=== PATIENT | female | born 1990 | race Caucasian/White ===

== ENCOUNTER 2016-10-07 20:50 | Emergency (ER) | END 2016-10-08 01:10 | disposition home or self-care (01) | DX: M54.5 Low back pain (principal) | CPT/HCPCS: 96372; 99284; J1885; Z7610 ==

== ENCOUNTER 2017-08-24 20:50 | Emergency (ER) | END 2017-08-24 22:53 | disposition home or self-care (01) ==

== ENCOUNTER 2018-01-25 08:11 | Emergency (ER) | END 2018-01-25 13:59 | disposition home or self-care (01) ==

== ENCOUNTER 2018-09-16 20:20 | Emergency (ER) | payer BC ==
[~2018-09-16] VITALS: Ht 157.5 cm; Wt 65.8 kg
[~2018-09-16 20:20] MED LIST: ACET500C5 PO; BACTDS PO; CIPR500T4 PO; CYCL10TA7 PO; HYDR-3029 PO; IBUP800T48 PO; NAPR-985 PO
[2018-09-16 20:37] VITALS: BP 122/67; PULSE 90; RESP 18; Ht 157.5 cm; Wt 65.8 kg
[2018-09-16] MEDS ORDERED: ACETAMINOPHEN 325 MG TAB PO STA (21:51)
--- NOTE | 2018-09-17 08:24 | ERD ---
ER Documentation Chief Complaint Chief Complaint pELVIC PAIN X 5 DAYS BILATERAL LEG PAIN 4 WEEKS PREG HPI 28-year-old G2, P1 female at approximately 4 weeks gestation presents to the ED complaining of bilateral pelvic pain x5 days. Patient denies any vaginal bleeding or discharge. She denies any urinary frequency urgency. Denies any back pain. Denies any fevers or chills. Her last menstrual cycle was on August 17, 2018. Patient has not yet established care with an CERTIFIED MASTER SAFE TECHNICIAN for her . She states she had a positive test at the clinic earlier today. ROS All systems reviewed and are negative except as per history of present illness. Medications Home Meds Active Scripts Acetaminophen* (Tylophen*) 500 Mg Capsule, 1 CAP PO Q6H PRN for PAIN AND OR ELEVATED TEMP, #20 CAP Prov:ASHER RODRIGUEZ NP 01/25/18 Ciprofloxacin Hcl* (Ciprofloxacin Hcl*) 500 Mg Tablet, 500 MG PO BID for 10 Days, TAB Prov:ASHER RODRIGUEZ NP 01/25/18 Hydroxyzine Hcl* (Hydroxyzine Hcl*) 10 Mg Tablet, 10 MG PO Q6H PRN for ANXIETY, #30 TAB Prov:HERSON BATISTA PA-C 08/24/17 Naproxen* (Naprosyn*) 500 Mg Tablet, 500 MG PO BID PRN for PAIN AND/OR INFLAMMATION, #30 TAB Prov:HERSON BATISTA PA-C 08/24/17 Cyclobenzaprine Hcl* (Cyclobenzaprine Hcl*) 10 Mg Tablet, 10 MG PO TID, #30 TAB Prov:JEANETTE LOMBARDI PA-C 10/08/16 Naproxen* (Naprosyn*) 500 Mg Tablet, 500 MG PO BID PRN for PAIN AND/OR INFLAMMATION, #30 TAB Prov:JEANETTE LOMBARDI PA-C 10/08/16 Sulfamethoxazole-Trimethoprim* (Bactrim* DS) 800-160 Mg Tab, 1 TAB PO BID for 14 Days, TAB Prov:PANCHO MAYFIELD DO 06/30/15 Ibuprofen* (Motrin*) 800 Mg Tab, 800 MG PO Q6H PRN for PAIN AND OR ELEVATED TEMP, #30 TAB Prov:PANCHO MAYFIELD DO 06/30/15 Allergies Allergies: Coded Allergies: No Known Allergy (Unverified , 11/24/12) PMhx/Soc History of Surgery: Yes (C section) Anesthesia Reaction: No Hx Neurological Disorder: No Hx Respiratory Disorders: No Hx Cardiac Disorders: No Hx Psychiatric Problems: No Hx Miscellaneous Medical Probl: No Hx Alcohol Use: No Hx Substance Use: No Hx Tobacco Use: No Smoking Status: Never smoker Physical Exam Vitals Vital Signs Date Temp Pulse Resp B/P (MAP) Pulse Ox O2 O2 Flow FiO2 Time Delivery Rate 09/16/18 98.3 90 18 122/67 96 20:37 (85) Physical Exam Const: No acute distress Head: Atraumatic Eyes: Normal Conjunctiva ENT: Normal External Ears, Nose and Mouth. Neck: Full range of motion. No meningismus. Resp: Clear to auscultation bilaterally Cardio: Regular rate and rhythm, no murmurs Abd: Soft, + mild bilateral lower pelvic tenderness to palpation. Negative McBurney's. Negative Figueroa's., non distended. Normal bowel sounds Skin: No petechiae or rashes Back: No midline or flank tenderness Ext: No cyanosis, or edema Neur: Awake and alert Psych: Normal Mood and Affect Result Diagram: 09/16/182203 Results 24 hrs Laboratory Tests Test 09/16/18 21:46 09/16/18 22:04 09/16/18 22:05 POC Beta HCG, Qualitative POSITIVE White Blood Count 11.1 10^3/ul Red Blood Count 4.03 10^6/ul Hemoglobin 12.1 g/dl Hematocrit 37.3 % Mean Corpuscular Volume 92.6 fl Mean Corpuscular Hemoglobin 30.0 pg Mean Corpuscular 32.4 g/dl Hemoglobin Concent Red Cell Distribution Width 14.3 % Platelet Count 404 10^3/UL Mean Platelet Volume 9.5 fl Immature Granulocytes % 0.500 % Neutrophils % 62.9 % Lymphocytes % 23.5 % Monocytes % 10.4 % Eosinophils % 2.2 % Basophils % 0.5 % Nucleated Red Blood Cells % 0.0 /100WBC Immature Granulocytes # 0.050 10^3/ul Neutrophils # 7.0 10^3/ul Lymphocytes # 2.6 10^3/ul Monocytes # 1.2 10^3/ul Eosinophils # 0.2 10^3/ul Basophils # 0.1 10^3/ul Nucleated Red Blood Cells # 0.0 10^3/ul Urine Color YELLOW Urine Clarity CLEAR Urine pH 6.0 Urine Specific [place] 1.014 Urine Ketones NEGATIVE mg/dL Urine Nitrite NEGATIVE mg/dL Urine Bilirubin NEGATIVE mg/dL Urine Urobilinogen NEGATIVE mg/dL Urine Leukocyte Esterase NEGATIVE Kimi/ul Urine Microscopic RBC 1 /HPF Urine Microscopic WBC 1 /HPF Urine Squamous Epithelial Cells FEW /HPF Urine Hemoglobin 2+ mg/dL Urine Glucose NEGATIVE mg/dL Urine Total Protein NEGATIVE mg/dl Beta HCG, Quantitative 2551.5 mIU/ml Current Medications Medications Dose Sig/Janine Start Time Status Last (Trade) Ordered Route PRN Stop Time Admin Dose Reason Admin 650 mg ONCE STAT 09/16/18 DC 09/16/18 Acetaminophen PO 21:51 22:26 (Tylenol 09/16/18 21:53 Tab) Procedures/MDM LABS & DIAGNOSTIC IMAGING: CBC: + WBC of 11K, likely stress reaction Urine: no e/o acute infection or hematuria hc Rh: positive PROCEDURE: US OB. CLINICAL INDICATION: First trimester pain TECHNIQUE: Transabdominal views of the pelvis are available for review. COMPARISON: No prior studies are available for comparison. FINDINGS: The uterus is anteverted. It measures 8.0 x 4.0 x 6.1 cm. Uterus is is of normal contour and echogenicity. Noted is a tiny intrauterine sac like structure. Mean sac diameter measures 0.36 cm in diameter. No pole, heartbeat or yolk sac is seen. No subchorionic hemorrhage is visualized. The right ovary measures I 0.1 x 2.3 x 3.1 centimeter. The left ovary measures 2.3 x 1.2 x 1.7 centimeter. No adnexal masses seen. There is normal arterial flow to both ovaries on color-flow Doppler imaging. There is no free fluid in the pelvis. No solid pelvic mass is present. IMPRESSION: Question tiny very early viable intrauterine . Correlation with beta HCG levels is suggested. ED COURSE: The patient was given Tylenol The medication was well tolerated and the patient had market improvement in symptoms. The patient remained stable throughout ED course. MEDICAL DECISION MAKING: This is a 28-year-old G2, P1 female who presents with pelvic pain. Labs without any signs of infection, dehydration or significant anemia. Her serum HCG was 2551. US showed an intrauterine sac. Her Rh was positive and she does not require Rhogam. Her vital signs are normal. Discussed with pt regarding differential diagnosis of ectopic , early and complete AB. She was given a copy of her results and told to follow up with government minister in 48 hours for repeat HCG and US. Strict return precautions given. PRESCRIPTIONS: Tylenol SPECIALIST FOLLOW UP RECOMMENDED: CERTIFIED MASTER SAFE TECHNICIAN Patient has been advised to follow up with primary care in 1-2 days. Departure Diagnosis: Primary Impression: Pelvic pain during Condition: Stable Patient Instructions: Pelvic Pain, Unknown Cause Referrals: CERTIFIED MASTER SAFE TECHNICIAN [place] [address] [facility] [address] [place] [address] OFFICE FAX [facility] [address] [place] [address] [facility] [address] [place] [address] [address] [address] [facility] [address] [address] [facility] [address] [place] [address] [facility] [address] [place] [address] [address] [facility] [address] - [place]AT[place]ER [address], [facility] [address] [address] [address] [facility]. [address], [facility] [address] [address] [address] [place], [place] [id number] Additional Instructions: See your CERTIFIED MASTER SAFE TECHNICIAN in the next 2 days. Take copies of your blood work with you. Return here for any new or worsening symptoms. He can take Tylenol for pain. A void taking Motrin or ibuprofen. THEODORE OTTO PA-C Sep 17, 2018 08:24
== END 2018-09-16 23:32 | disposition home or self-care (01) ==
LOC: FTE 20:20
DX: O26.891 Other specified pregnancy related conditions, first trimester (principal); R10.2 Pelvic and perineal pain; Z3A.01 Less than 8 weeks gestation of pregnancy
CPT/HCPCS: 36415; 76801; 81001; 81025; 84702; 85025; 86900; 86901; 87086; Z7502; Z7610

== ENCOUNTER 2018-09-26 18:30 | Emergency (ER) | payer BC ==
[~2018-09-26] VITALS: Ht 157.5 cm; Wt 65.1 kg
[2018-09-26 18:36] VITALS: PULSE 104; Ht 157.5 cm; Wt 65.1 kg
[2018-09-26] MEDS ORDERED: CEPH-443 PO (20:53)
[2018-09-26] MEDS ORDERED: CEPHALEXIN 500 MG CAP PO ONE (21:00)
[2018-09-26 21:17] VITALS: BP 122/75; RESP 16
--- NOTE | 2018-09-26 21:58 | ERD ---
ER Documentation Chief Complaint Chief Complaint vaginal bleeding/abd pain x 30 min. states 6 weeks HPI History of Present Illness: 28-year-old female who denies a past medical history coming in today due to vaginal bleeding started 30 minutes prior to arrival and is consistent with a menstrual period without clot. Patient reports being approximately 6 weeks with the LMP of 08/17/2018. Patient G2, P1. Associated symptoms includes for abdominal cramping. Patient denies any other symptoms. At home pharmacological/nonpharmacological treatment for symptoms: Denies Denies social concerns; Denies recent foreign travel ROS All systems reviewed and are negative except as per history of present illness. Medications Home Meds Active Scripts Cephalexin* (Keflex*) 500 Mg Capsule, 500 MG PO BID for BACTERIA IN URINE for 7 Days, CAP Prov:ABDULKADIR MARAVILLA NP 09/26/18 Acetaminophen* (Tylophen*) 500 Mg Capsule, 1 CAP PO Q6H PRN for PAIN AND OR ELEVATED TEMP, #20 CAP Prov:ASHER RODRIGUEZ NP 01/25/18 Ciprofloxacin Hcl* (Ciprofloxacin Hcl*) 500 Mg Tablet, 500 MG PO BID for 10 Days, TAB Prov:ASHER RODRIGUEZ NP 01/25/18 Hydroxyzine Hcl* (Hydroxyzine Hcl*) 10 Mg Tablet, 10 MG PO Q6H PRN for ANXIETY, #30 TAB Prov:HERSON BATISTA PA-C 08/24/17 Naproxen* (Naprosyn*) 500 Mg Tablet, 500 MG PO BID PRN for PAIN AND/OR INFLAMMATION, #30 TAB Prov:HERSON BATISTA PA-C 08/24/17 Cyclobenzaprine Hcl* (Cyclobenzaprine Hcl*) 10 Mg Tablet, 10 MG PO TID, #30 TAB Prov:JEANETTE LOMBARDI PA-C 10/08/16 Naproxen* (Naprosyn*) 500 Mg Tablet, 500 MG PO BID PRN for PAIN AND/OR INFLAMMATION, #30 TAB Prov:JEANETTE LOMBARDI PA-C 10/08/16 Sulfamethoxazole-Trimethoprim* (Bactrim* DS) 800-160 Mg Tab, 1 TAB PO BID for 14 Days, TAB Prov:PANCHO MAYFIELD DO 06/30/15 Ibuprofen* (Motrin*) 800 Mg Tab, 800 MG PO Q6H PRN for PAIN AND OR ELEVATED TEMP, #30 TAB Prov:PANCHO MAYFIELD DO 06/30/15 Allergies Allergies: Coded Allergies: No Known Allergy (Unverified , 11/24/12) PMhx/Soc Medical and Surgical Hx: pt denies Medical Hx History of Surgery: Yes (C section) Anesthesia Reaction: No Hx Neurological Disorder: No Hx Respiratory Disorders: No Hx Cardiac Disorders: No Hx Psychiatric Problems: No Hx Miscellaneous Medical Probl: No Hx Alcohol Use: No Hx Substance Use: No Hx Tobacco Use: No Smoking Status: Never smoker FmHx Family History: No diabetes, No coronary disease Physical Exam Vitals Vital Signs Date Temp Pulse Resp B/P (MAP) Pulse Ox O2 O2 Flow FiO2 Time Delivery Rate 09/26/18 98.4 16 122/75 100 Room Air 21:17 (91) 09/26/18 99.1 104 20 162/91 98 18:36 (114) Physical Exam Const: No acute distress, afebrile Head: Atraumatic Eyes: Normal Conjunctiva ENT: Normal External Ears, Nose and Mouth. Neck: Full range of motion. No meningismus. Resp: Clear to auscultation bilaterally Cardio: Regular rate and rhythm, no murmurs Abd: Soft, lower quadrant tenderness and suprapubic tenderness, non distended. Normal bowel sounds. No guarding, no masses, no rigidity Skin: No petechiae or rashes Back: No midline or flank tenderness Ext: No cyanosis, or edema Neur: Awake and alert x3, speaking in clear sentences, no focal deficits or facial asymmetry Psych: Normal Mood and Affect Result Diagram: 09/26/181929 Results 24 hrs Laboratory Tests Test 09/26/18 19:30 White Blood Count 13.5 10^3/ul Red Blood Count 4.15 10^6/ul Hemoglobin 12.6 g/dl Hematocrit 37.6 % Mean Corpuscular Volume 90.6 fl Mean Corpuscular Hemoglobin 30.4 pg Mean Corpuscular Hemoglobin Concent 33.5 g/dl Red Cell Distribution Width 14.0 % Platelet Count 421 10^3/UL Mean Platelet Volume 9.5 fl Immature Granulocytes % 0.400 % Neutrophils % 72.9 % Lymphocytes % 17.6 % Monocytes % 7.9 % Eosinophils % 0.8 % Basophils % 0.4 % Nucleated Red Blood Cells % 0.0 /100WBC Immature Granulocytes # 0.060 10^3/ul Neutrophils # 9.9 10^3/ul Lymphocytes # 2.4 10^3/ul Monocytes # 1.1 10^3/ul Eosinophils # 0.1 10^3/ul Basophils # 0.1 10^3/ul Nucleated Red Blood Cells # 0.0 10^3/ul Urine Color YELLOW Urine Clarity SLIGHTLY CLOUDY Urine pH 7.0 Urine Specific [place]andrew[place] 1.010 Urine Ketones NEGATIVE mg/dL Urine Nitrite NEGATIVE mg/dL Urine Bilirubin NEGATIVE mg/dL Urine Urobilinogen NEGATIVE mg/dL Urine Leukocyte Esterase NEGATIVE Kimi/ul Urine Microscopic RBC 1 /HPF Urine Microscopic WBC 3 /HPF Urine Squamous Epithelial Cells FEW /HPF Urine Bacteria FEW /HPF Urine Hemoglobin 2+ mg/dL Urine Glucose NEGATIVE mg/dL Urine Total Protein NEGATIVE mg/dl Beta HCG, Quantitative 98520.0 mIU/ml Current Medications Medications Dose Sig/Janine Start Time Status Last (Trade) Ordered Route PRN Stop Time Admin Dose Reason Admin Cephalexin 500 mg ONCE ONCE 09/26/18 DC 09/26/18 (Keflex) PO 21:00 21:14 09/26/18 21:01 Procedures/MDM ED COURSE: ED course includes a thorough examination and history. The patient was stable throughout ED course. I kept the patient and/or family informed of laboratory and diagnostic imaging results throughout the ED course. LABS: CBC: no e/o of systemic infection or severe anemia Beta quantitative 42,254 Urinalysis positive for 3+ WBCs, few bacteria, 2+ hemoglobin Type: O+, no RhoGam indicated MEDICATIONS GIVEN IN ER: Cephalexin due to urinalysis results.. DIAGNOSTIC IMAGING: Read by radiologist. IMPRESSION: 1. Single live intrauterine with an estimated gestational age of 6 weeks and 0 days. Physician Viral Date Time Electronically viewed and signed by Physician Viral on 09/26/2018 20:31 PROCEDURES: None. MEDICAL DECISION MAKING: Low suspicion for life-threatening medical emergency. Low suspicion for acute abdominal emergency. Otherwise healthy patient presenting with constellation of symptoms likely representing vaginal bleeding during /threatened miscarriage as characterized by history, physical exam findings, lab findings, imaging findings. Patient reassessment @ 2054: Results discussed with present. Hemorrhage precautions discussed. Patient hemodynamically stable. No respiratory distress, otherwise relatively well appearing and nontoxic. Disposition given. Patient educated on diagnoses, prescriptions, follow-up care, return preca utions. Strict return precautions given for worsening condition; questions answered discharge. Patient verbalizes understanding of discharge instructions. PRESCRIPTIONS FOR HOME: Cephalexin DISPOSITION: DISCHARGE At this time, patient is stable for discharge and outpatient management. I have instructed the patient to follow-up with his/her primary care physician in 1-2 days. I have discussed with the patient the possibility of needing to see a specialist for further workup and imaging studies if symptoms persist. I have instructed the patient to promptly return to the ER for any new or worsening symptoms including increased pain, fever, nausea, vomiting, weakness or LOC. The patient and/or family expressed understanding of and agreement with this plan. All questions were answered. Home care instructions were provided. DISCLAIMER: Inadvertent spelling and grammatical errors are likely due to EHR/dictation software use and do not reflect on the overall quality of patient care. Also, please note that the electronic time recorded on this note does not necessarily reflect the actual time of the patient encounter. Departure Diagnosis: Primary Impression: Bacteria in urine Additional Impressions: Threatened miscarriage Vaginal bleeding in patient at less than 20 weeks ges... Condition: Stable Patient Instructions: Urinary Tract Infections in Women, Bleeding During Early , Possible Miscarriage (Threatened ) Referrals: [facility] YOU HAVE RECEIVED A MEDICAL SCREENING EXAM AND THE RESULTS INDICATE THAT YOU DO NOT HAVE A CONDITION THAT REQUIRES URGENT TREATMENT IN THE EMERGENCY DEPARTMENT. FURTHER EVALUATION AND TREATMENT OF YOUR CONDITION CAN WAIT UNTIL YOU ARE SEEN IN YOUR DOCTORS OFFICE WITHIN THE NEXT 1-2 DAYS. IT IS YOUR RESPONSIBILITY TO MAKE AN APPOINTMENT FOR FOLOW-UP CARE. IF YOU HAVE A PRIMARY DOCTOR --you should call your primary doctor and schedule an appointment IF YOU DO NOT HAVE A PRIMARY DOCTOR YOU CAN CALL OUR PHYSICIAN REFERRAL HOTLINE AT IF YOU CAN NOT AFFORD TO SEE A PHYSICIAN YOU CAN CHOSE FROM THE FOLLOWING [facility] [address] [facility] [place]. [facility] [address] [facility]. [facility] [address] [facility] [address] [facility] [phone] [address] [facility] [facility]. [address] [facility]. [facility] YOU HAVE RECEIVED A MEDICAL SCREENING EXAM AND THE RESULTS INDICATE THAT YOU DO NOT HAVE A CONDITION THAT REQUIRES URGENT TREATMENT IN THE EMERGENCY DEPARTMENT. FURTHER EVALUATION AND TREATMENT OF YOUR CONDITION CAN WAIT UNTIL YOU ARE SEEN IN YOUR DOCTORS OFFICE WITHIN THE NEXT 1-2 DAYS. IT IS YOUR RESPONSIBILITY TO MAKE AN APPOINTMENT FOR FOLOW-UP CARE. IF YOU HAVE A PRIMARY DOCTOR --you should call your primary doctor and schedule and appointment IF YOU DO NOT HAVE A PRIMARY DOCTOR YOU CAN CALL OUR PHYSICIAN REFERRAL HOTLINE AT . IF YOU CAN NOT AFFORD TO SEE A PHYSICIAN YOU CAN CHOSE FROM THE FOLLOWING [facility] INSTITUTIONS: [facility] [address] [place] [address] [facility] [address] [place] [address] [facility] [address] [place] [address] MOLDER OFF[place] [address] [facility] [address] [place], [place] [id number] OFFICE FAX [facility] [address] [place], [place] [id number] [place] [address] [place], [place] [phone] [facility] [address] [facility], [address] [address] [address] [address] [place] [id number] [facility] [address] [place] [address] [facility] [address] - [address]ATELYNN [address] [facility] [address] [address], [place] [address] [facility]. [address], [facility] [address] [address], [facility] [address] [place], [place] [id number] Additional Instructions: Thank you very much for allowing us to participate in your care. Your health and safety is our top priority at [facility]. It is important to read all discharge instructions and education provided in your discharge packet. *Follow-up with your primary care doctor or MOLDER OFFBEARER next week to see if any repeat testing may need to be done including repeat HCG level and ultrasound* Call your primary care doctor TOMORROW for an appointment during the next 2-4 days and bring all the information and medications prescribed. Have prescriptions filled and follow precisely the directions on the label. Cephalexin is an antibiotic; take this medication every day as listed on your prescription. You must complete the entire course of treatment that is listed on your prescription this is very important because it takes a certain number of days to kill the bacteria that is causing the infection. If the symptoms get worse and your provider is unavailable, return to the Emergency Department immediately. *Signs of hemorrhage or too much bleeding include soaking 1 pad per hour; a life-threatening medical emergency and need to return to emergency department immediately* ABDULKADIR MARAVILLA NP Sep 26, 2018 21:57
== END 2018-09-26 21:18 | disposition home or self-care (01) ==
LOC: FTE 18:30
DX: O20.0 Threatened abortion (principal); O23.41 Unspecified infection of urinary tract in pregnancy, first trimester; Z3A.01 Less than 8 weeks gestation of pregnancy
CPT/HCPCS: 36415; 76801; 81001; 84702; 85025; 86900; 86901; Z7502; Z7610

== ENCOUNTER 2018-12-22 08:36 | Emergency (ER) | payer BC ==
[~2018-12-22] VITALS: Ht 154.9 cm; Wt 67.9 kg
[~2018-12-22 08:36] MED LIST changes: +CEPH-443 PO; +PREN-93 PO
[2018-12-22 08:41] VITALS: Ht 154.9 cm; Wt 67.9 kg
[2018-12-22] MEDS ORDERED: LIDOCAINE 1% (MPF) 5 ML VIAL INJ ONE (11:00)
[2018-12-22] MEDS ORDERED: CEFTRIAXONE 1 GM INJ IM ONE (11:00)
[2018-12-22 11:12] VITALS: BP 132/67; PULSE 78; RESP 18
== END 2018-12-22 11:13 | disposition home or self-care (01) ==
LOC: FTE 08:36
DX: O23.42 Unspecified infection of urinary tract in pregnancy, second trimester (principal); R10.2 Pelvic and perineal pain; Z3A.18 18 weeks gestation of pregnancy
CPT/HCPCS: 36415; 76700; 76805; 80053; 81001; 83690; 84702; 85025; 86900; 86901; 87086; 96372; J0696; Z7502; Z7610